=== PATIENT | male | born 1950 | race Caucasian/White ===

== ENCOUNTER 2024-01-19 10:18 | Day surgery (SDC) | payer MEDICARE ==
[~2024-01-19] VITALS: Ht 172.7 cm; Wt 95.1 kg
[2024-01-19] MEDS ORDERED: Lidocaine 2%-Epineph 1:200000 20 ML SDV ONE (10:50)
[2024-01-19] MEDS ORDERED: Erythromycin 0.5% Opth Oint 1 gm ONE (10:50)
[2024-01-19] MEDS ORDERED: Bupivacaine HCl 0.25% 30 ML Injection ONE (10:51)
[2024-01-19] MEDS ORDERED: Hytrin1 MG PO (10:52)
[2024-01-19] MEDS ORDERED: ACET250 PO (10:52)
[2024-01-19] MEDS ORDERED: LATANOPROST2.5 M3 OP (10:53)
[2024-01-19] MEDS ORDERED: AMLODIPINE BESY10 MG PO (10:53)
[2024-01-19] MEDS ORDERED: DORZOLAMIDE-TIM10 ML (10:53)
[2024-01-19] MEDS ORDERED: LOSA50 PO (10:53)
[2024-01-19] MEDS ORDERED: METFORMIN HCL500 M2 PO (10:54)
[2024-01-19] MEDS ORDERED: LOVASTATIN20 MG PO (10:54)
[2024-01-19] MEDS ORDERED: HYDCHL25 PO (10:54)
[2024-01-19] MEDS ORDERED: METOPROLOL SUCC25 MG PO (10:54)
[2024-01-19] MEDS ORDERED: ACTOS30 MG PO (10:54)
[2024-01-19] MEDS ORDERED: OMEP20ER PO (10:55)
[2024-01-19] MEDS ORDERED: FLUT.05NI (10:55)
[2024-01-19] MEDS ORDERED: BRIMONIDINE TART5 M2 OP (10:55)
[2024-01-19] MEDS ORDERED: propofoL 20 ML IV ONE (10:56)
[2024-01-19] MEDS ORDERED: FentaNYL Citrate 50 MCG/ML 2 ML Injection ONE ×2 (10:56→14:04)
[2024-01-19] MEDS ORDERED: Bupivacaine 0.5% HCl 5 MG/ML 30MLVIAL ONE (10:58)
[2024-01-19] MEDS ORDERED: Aspir 8181 MG PO (11:02)
[2024-01-19] MEDS ORDERED: Lactated Ringer's 1,000 ML IV ONE ×3 (11:13→13:50)
[2024-01-19] MEDS ORDERED: Gentamicin Sulfate 40 MG / ML 2ML Vial IR ONE (11:25)
[2024-01-19] MEDS ORDERED: Bupivacaine HCl 0.25% 50 ML Vial ONE (11:34)
[2024-01-19] MEDS ORDERED: GENTAMICIN SULFATE 10 MG/ML XX ONE (11:45)
--- NOTE | 2024-01-19 11:56 | NUR ---
01/19/24 1156 Rosi Olivo PT REPORTS HISTORY OF ALLERGIC REACTION TO TOPICAL BETADINE IODINE. REPORTS THAT HE HAS HAD A REACTION TWICE (8 YEARS OLD) AND ALSO SEVERAL YEARS AGO AFTER A LEG SURGERY. STATES THAT HE "BROKE OUT IN HIVES THAT WERE WEEPY AT THE LOCATION THAT THE IODINE HAD BEEN PLACED. SPOKE TO OR CHARGE NURSE JAR REGARDING ABOVE AND SHE ADVISED ME TO PROCEED WITH DOING AN IODINE SKIN TEST. PLACED SMALL AMOUNT OF IODINE TO RFA AT 1147. AT THIS POINT SITE APPEARS CLEAR. WILL CONTINUE TO MONITOR. PT ALSO ADVISED TO NOTIFY THIS RN IF HE STARTS TO FEEL ANYTHING ABNORMAL AT SITE.
[2024-01-19] MEDS ORDERED: Gentamicin Sulfate 40 MG / ML 2ML Vial XX ONE (12:45)
[2024-01-19] MEDS ORDERED: Ondansetron HCl 2 MG / ML 2ML Vial ONE (12:45)
[2024-01-19] MEDS ORDERED: Metoclopramide HCl 5MG / ML 2ML Vial ONE (12:45)
[2024-01-19] MEDS ORDERED: Bupivacaine HCl 0.25% 50 ML Vial (NON CHARGE) XX ONE (12:45)
--- NOTE | 2024-01-19 15:31 | NUR ---
01/19/24 1531 Priscilla Becker RN SENT THIS RN TO BREAK AND WENT OVER D/C INSTRUCTIONS WITH PT , PT , AND DAUGHTER.
== END 2024-01-19 15:28 | disposition home or self-care (01) ==
LOC: ORSCSDS 10:18
PROVIDERS: Ophthalmology
PROC: 08T1XZZ Resection of Left Eye, External Approach (ICD-10-PCS; principal; 2024-01-19 12:30)
DX: H44.512 Absolute glaucoma, left eye (principal); I10 Essential (primary) hypertension; E78.00 Pure hypercholesterolemia, unspecified; E11.9 Type 2 diabetes mellitus without complications; Z79.899 Other long term (current) drug therapy; E66.9 Obesity, unspecified; Z68.31 Body mass index [BMI] 31.0-31.9, adult; Z79.82 Long term (current) use of aspirin
CPT/HCPCS: 82947; 88307; A9270; C1889; J1580; J2405; J2704; J2765; J3010; J7120